=== PATIENT | male | born 1990 | race Caucasian/White ===

== ENCOUNTER 2021-06-02 21:29 | Emergency (ER) | payer MEDICAID, SELFPAY ==
--- NOTE | 2021-06-02 21:31 | ED.GENADUL_ITS ---
Discharge Plan Disposition Patient Disposition: HOME Condition: Stable Discharge Details Clinical Impression: Peripheral neuropathy, Right shoulder pain, Degenerative disc disease, cervical Primary Care Provider: Unknown,Unknown ED Provider: Alka Bustos Home Meds and New Rx's Prescriptions: New prednisone 20 mg tablet See Rx Instructions .ROUTE .COMPLEX Qty: 12 0RF Rx Instructions: Take 3 tabs daily for 2 days, then 2 tabs daily for 2 days, then 1 tab daily for 2 days methocarbamol 500 mg tablet 500 mg PO Q6H PRN (Reason: muscle spasm) Qty: 14 0RF naproxen [Naprosyn] 500 mg tablet 500 mg PO BID PRN (Reason: pain) Qty: 14 0RF Discharge Instructions Instructions: Shoulder Pain (ED) Additional Instructions: Your shoulder x-ray is negative for any acute findings. Your cervical spine CT scan notes arthritis but no other acute findings. Your symptoms may be due to a pinched nerve in your neck or back or muscle strain in your neck or shoulder. If your symptoms persist or worsen, you may need further evaluation with an MRI of your cervical spine or shoulder and follow up with an orthopedist. Prescription for steroids, muscle relaxers and anti-inflammatories have been sent electronically to your pharmacy. Follow-up with your primary care doctor in 1 week. Return to the emergency department with any worsening or new concerning symptoms. Referrals: Bruno Schmidt MD [ [facility] STAFF PHYSICIAN] - Discharge Data Discharge Physician: Alka Bustos Medical Decision Making 31-year-old vtloc-bevy-eawhphwi male presents the ED with a complaint of right shoulder pain and numbness in his upper extremity upon awakening this morning. Vitals within normal limits. Patient appears comfortable and nontoxic. He has tenderness along his right trapezius and pain in right shoulder with active and passive range of motion. His muscle strength in his right upper extremity is 4/5 compared to 5/5 in the left upper extremity. He is able to lift both arms but appears uncomfortable when attempting to fully abduct at his right shoulder. He has altered sensation mostly in the distal upper extremity and diminished reflexes on the right. His pulses are otherwise intact with normal capillary refill and skin color. Differential diagnosis includes cervical radiculopathy, peripheral neuropathy, shoulder strain versus sprain. History and presentation does not appear consistent with CVA, meningitis, seizure, electrolyte abnormality, stroke or ACS. Do not feel indication for lab or cardiac imaging. Will obtain a CT cerv ical spine, right shoulder x-ray and give a dose of p.o. prednisone, p.o. Valium and IM Toradol and reassess. Shoulder imaging reviewed and negative. CT cervical spine imaging reviewed and notes degenerative changes but no other acute findings. Patient reassessed and he states he feels better. He states the sensation in his hand is improving. Patient feels comfortable going home. Prescriptions for steroids, muscle relaxers and NSAIDs sent electronically to his pharmacy. He was advised to call his PCP office tomorrow for follow-up and for referral for MRI of his shoulder or cervical spine if his symptoms do not improve or worsen. Usual and customary return precautions given prior to discharge. Medical Records Medical records reviewed: Yes I reviewed the patient's medical records. Imaging Data Radiologic Study: Radiologist's impression: XR Right Shoulder Exam date and time: 06/02/2021 22:19 Age: 31 years old Clinical indication: Pain; Shoulder; Right; Additional info: Right shoulder pain TECHNIQUE: Imaging protocol: XR Right shoulder. Views: 2 or more views. COMPARISON: No relevant prior studies available. FINDINGS: Bones/joints: No acute fracture or subluxation. Mild acromioclavicular degenerative changes. Soft tissues: Normal. IMPRESSION: No acute bony pathology. CT Cervical Spine Without Contrast Exam date and time: 06/02/2021 22:22 Age: 31 years old Clinical indication: Other: Paresthesia; Radicular pain (radiculopathy); Cervicothoracic region; Additional info: Right shoulder pain, right trapezius pain, right arm paresthesia TECHNIQUE: Imaging protocol: Computed tomography images of the cervical spine without contrast. Radiation optimization: All CT scans at this facility use at least one of these dose optimization techniques: automated exposure control; mA and/or kV adjustment per patient size (includes targeted exams where dose is matched to clinical indication); or iterative reconstruction. COMPARISON: CR XR SHOULDER RT COMPLETE 2+V 06/02/2021 22:19 FINDINGS: Bones/joints: Reversal of the normal cervical lordosis. No acute fracture or subluxation. Discs/Spinal canal/Neural foramina: Degenerative changes are pronounced for age appearing moderate to severe at C6-C7. Neural foraminal greater than central canal stenosis; neural foraminal disease most pronounced on the left at C6-C7, severe at this level. Lungs: No consolidation.? Soft tissues: No suspicious lesions.? IMPRESSION: No cervical spine fracture. Degenerative changes. HPI General Mode of arrival: ambulatory . Date/Time Provider Initiated Documentation: 06/02/21 21:30 . Limitations to Documentation: no limitations . Information obtained by: patient . HPI Narrative: Pt is a 31yo M who presents to the ED with a complaint of pain in his right shoulder and numbness in his right arm with difficulty lifting his arm today secondary to pain and numbness. 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 Patient states he is a side sleeper and states he awoke with the pain this morning. He states he took 2 Tylenol earlier today without relief. He denies any significant neck pain, headache, chest pain, shortness of breath. Related Data Home Medications Medication Instructions Recorded Confirmed methocarbamol 500 mg tablet 500 mg PO Q6H PRN #14 tab 06/02/21 naproxen 500 mg tablet (Naprosyn) 500 mg PO BID PRN #14 tab 06/02/21 prednisone 20 mg tablet See Rx Instructions .ROUTE 06/02/21 .COMPLEX #12 tab Previous Rx's Medication Instructions Recorded methocarbamol 500 mg tablet 500 mg PO Q6H PRN #14 tab 06/02/21 naproxen 500 mg tablet (Naprosyn) 500 mg PO BID PRN #14 tab 06/02/21 prednisone 20 mg tablet See Rx Instructions .ROUTE 06/02/21 .COMPLEX #12 tab Allergies Allergy/AdvReac Type Severity Reaction Status Date / Time codeine Allergy Mild Unverified 06/02/21 21:48 General Stated Complaint: Orthopedic DIANA: 3 Review of Systems All systems reviewed & are unremarkable except as noted in HPI and below Constitutional Constitutional: Reports as per HPI, Denies chills and Denies fever(s) Eyes Eyes: Denies blurry vision ENT Ears, Nose, Mouth, and Throat: Denies dizziness, Denies sore throat and Denies throat swelling Cardiovascular Cardiovascular: Denies chest pain and Denies dyspnea Respiratory Respiratory: Denies cough and Denies dyspnea Gastrointestinal Gastrointestinal: Denies abdominal pain, Denies diarrhea and Denies vomiting Genitourinary Genitourinary: Denies hematuria and Denies dysuria Musculoskeletal Musculoskeletal: Denies back pain and Reports numbness Comments: R shoulder pain Integumentary/Breasts Skin/Breast: Denies lesions and Denies rash Neurologic Neurologic: Denies dizziness, Denies localized weakness and Reports numbness Allergic/Immunologic Allergic/Immunologic: Denies throat swelling PFSH All Active Problems (Updated 06/02/21 @ 22:55 by Alka Bustos DO) Peripheral neuropathy (Acute) Right shoulder pain (Acute) Degenerative disc disease, cervical (Acute) Medical History (Updated 06/02/21 @ 22:55 by Alka Bustos DO) No significant past medical history Surgical History (Updated 06/02/21 @ 22:12 by Alka Bustos DO) History of hernia repair Social History Smoking/Tobacco Use Status: Current every day Tobacco Type: cigarettes Smoking risk assessment performed?: Yes Alcohol Intake: never Drug use: Occasionally Substance use type: marijuana Details: marijuana at night Do you feel safe at home: Yes Do you feel safe in your relationship?: Yes Exam Const General: cooperative and no acute distress Orientation: alert, awake and oriented x3 HENMT Head: normal to inspection Mouth: oral mucosae normal Eyes General: appearance normal, both eyes and all related structures Neck Neck: normal visual inspection Resp Effort & Inspection: normal respiratory effort and able to speak in complete sentences Cardio Rate: regular rate Skin General skin exam: no rashes or lesions noted Neuro General: patient alert, patient awake and patient oriented x3 Motor: muscle tone normal throughout Other: Muscle strength left upper extremity 5/5. Muscle strength right upper extremity 4/5. Diminished right biceps/triceps/brachioradialis reflexes compared to left upper extremity. Diminished sensation of circumferential right forearm and right posterior upper arm. Intact sensation to right anterior upper arm. Extrem Shoulder/upper arm images: 1. Localized area of tenderness to palpation overlying R trapezius. There is there is no surrounding edema, erythema, ecchymosis, rash or lesions. Other: Pain in right shoulder with active and passive range of motion. Bilateral radial and ulnar pulses intact. Bilateral upper extremities skin color normal to inspection. Psych Appearance: grossly normal Affect: normal affect
[2021-06-02 21:42] VITALS: BP 141/87; PULSE 103; RESP 18; TEMP 37.1; O2SAT 99
--- NOTE | 2021-06-02 22:00 | DI.CT_ITS ---
Exam(s) CT CERVICAL SPINE WO EXAM: CT CERVICAL SPINE WO CLINICAL HISTORY: R trapezius pain, R arm paresthesia. TECHNIQUE: Imaging Protocol: Axial computed tomography images with coronal and sagittal reformatted images were created and reviewed COMPARISON: No exams were available for comparison FINDINGS: CERVICAL SPINE: There is no evidence of fracture nor listhesis. No significant prevertebral soft tissue swelling. There is, however, straightening of the cervical curvature. There is chronic disc space narrowing at C5-6 and C6-7 levels. Small bilateral Luschka joint osteophytes noted at C6-7 level. There is no s ignificant facet arthropathy. There is no significant facet joint malalignment. No significant osseous lesions evident. IMPRESSION: Chronic degenerative disc disease in the lower cervical spine. No evidence of cervical spine fracture, malalignment, nor acute compromise of the cervical spinal can al. RADIATION DOSE DELIVERED: 572.36mGy.cm Total DLP DATA REPOSITORY: All CT scans at this facility are submitted to the National Radiology Data Registry (NRDR) Dose Index Registry (DIR) with the [employer] ([employer]). RADIATION OPTIMIZATION: All CT scans at this facility use at least one of these dose optimization te chniques: automated exposure control; mA and/or kV adjustment per patient size (includes targeted exa ms where dose is matched to clinical indication); or iterative reconstruction.
--- NOTE | 2021-06-02 22:00 | DI.RAD_ITS ---
Exam(s) XR SHOULDER RT COMPLETE 2+V EXAM: XR SHOULDER RT COMPLETE 2+V CLINICAL HISTORY: R shoulder pain, r/o acute findings. TECHNIQUE: 2D digital imaging was performed. COMPARISON: No exams were available for comparison FINDINGS: Four views No evidence of fracture or dislocation. No abnormal soft tissue calcifications. Bone density normal . No osseous lesions. Mild degenerative changes in the AC joint. Glenohumeral joint unremarkable. IMPRESSION: No fracture evident. DATA REPOSITORY: RADIATION DOSE DELIVERED:
[2021-06-02] MEDS: Ketorolac 60 MG/2 ML VIAL IM (22:09)
[2021-06-02] MEDS: diazePAM 5 MG TAB PO (22:11)
[2021-06-02] MEDS: predniSONE 20 MG TAB 60 MG PO (22:12)
--- NOTE | 2021-06-02 22:34 | DI.VRAD_ITS ---
PROCEDURE INFORMATION: Exam: XR Right Shoulder Exam date and time: 06/02/2021 22:19 Age: 31 years old Clinical indication: Pain; Shoulder; Right; Additional info: Right shoulder pain TECHNIQUE: Imaging protocol: XR Right shoulder. Views: 2 or more views. COMPARISON: No relevant prior studies available. FINDINGS: Bones/joints: No acute fracture or subluxation. Mild acromioclavicular degenerative changes. Soft tissues: Normal. IMPRESSION: No acute bony pathology. Dictated and Authenticated by: Ade Frnacisco MD. Ordering:SOL Rucker MD
--- NOTE | 2021-06-02 22:40 | DI.VRAD_ITS ---
PROCEDURE INFORMATION: Exam: CT Cervical Spine Without Contrast Exam date and time: 06/02/2021 22:22 Age: 31 years old Clinical indication: Other: Paresthesia; Radicular pain (radiculopathy); Cervicothoracic region; Additional info: Right shoulder pain, right trapezius pain, right arm paresthesia TECHNIQUE: Imaging protocol: Computed tomography images of the cervical spine without contrast. Radiation optimization: All CT scans at this facility use at least one of these dose optimization techniques: automated exposure control; mA and/or kV adjustment per patient size (includes targeted exams where dose is matched to clinical indication); or iterative reconstruction. COMPARISON: CR XR SHOULDER RT COMPLETE 2+V 06/02/2021 22:19 FINDINGS: Bones/joints: Reversal of the normal cervical lordosis. No acute fracture or subluxation. Discs/Spinal canal/Neural foramina: Degenerative changes are pronounced for age appearing moderate to severe at C6-C7. Neural foraminal greater than central canal stenosis; neural foraminal disease most pronounced on the left at C6-C7, severe at this level. Lungs: No consolidation. Soft tissues: No suspicious lesions. IMPRESSION: No cervical spine fracture. Degenerative changes. Dictated and Authenticated by: Ade Francisco MD. Ordering:SOL Rucker MD
[2021-06-02] MEDS: Methocarbamol 500 MG TAB 1000 MG PO (22:44)
[2021-06-02 22:47] VITALS: BP 116/70; PULSE 78; O2SAT 99
[2021-06-02 22:48] VITALS: O2SAT 98
[2021-06-02 22:50] VITALS: O2SAT 98
== END 2021-06-02 23:23 | disposition home or self-care (01) ==
PROVIDERS: Emergency Provider Physician Assistant
DX: G62.89 Other specified polyneuropathies (principal); M25.511 Pain in right shoulder; M50.322 Other cervical disc degeneration at C5-C6 level
CPT/HCPCS: 96372; 99284; 72125; 73030; J1885; J7512